=== PATIENT | female | born 1975 | race Caucasian/White ===

== ENCOUNTER 2016-04-12 22:39 | Emergency (ER) | payer MEDICAID ==
[~2016-04-12] VITALS: Ht 162.6 cm; Wt 90.3 kg
[2016-04-12 22:53] VITALS: BP 142/94
--- NOTE | 2016-04-13 01:12 | NUR ---
PT TAKEN TO BED 1
--- NOTE | 2016-04-13 01:13 | NUR ---
PATIENT PRESENTS TO ED WITH VAGINAL ABCESS . PT STATES THE PAIN HAS BEEN CONSTANT AND FEELS LIKE TONS OF TINY NEEDLES X1WEEK . DENIES N/V/D; SKIN IS PINK/WARM/DRY; AAOX4 WITH EVEN AND STEADY GAIT; LUNGS CLEAR BL; HR EVEN AND REGULAR; PT DENIES ANY FEVER, CP, SOB, OR COUGH AT THIS TIME; PATIENT STATES PAIN OF 10/10 AT THIS TIME; VSS; PATIENT POSITIONED FOR COMFORT; HOB ELEVATED; BEDRAILS UP X2; BED DOWN. ER MD MADE AWARE OF PT STATUS. DAUGHTER AT BEDSIDE
--- NOTE | 2016-04-13 01:14 | NUR ---
Dr. Aguayo evaluating patient at bedside.
[2016-04-13] MEDS ORDERED: ONDANSETRON 4 MG/2 ML VIAL IM ONE (01:25)
[2016-04-13] MEDS ORDERED: HYDROmorphone 1 MG/ML AMP ONE (01:30)
[2016-04-13] MEDS ORDERED: HYDROmorphone 1 MG/ML AMP IM ONE (01:45)
[2016-04-13 01:57] VITALS: BP 135/81
--- NOTE | 2016-04-13 01:58 | NUR ---
Patient discharged with v/s stable. Written and verbal after care instructions given and explained. Patient alert, oriented and verbalized understanding of instructions. Ambulatory with steady gait. All questions addressed prior to discharge. ID band removed. Patient advised to follow up with PMD. Rx of BACTRIM AND TYLENOL WITH CODEINE given. Patient educated on indication of medication including possible reaction and side effects. Opportunity to ask questions provided and answered. DAUGHTER AT SIDE AT THIS TIME
== END 2016-04-13 01:58 | disposition home or self-care (01) ==
LOC: MED 22:39
DX: N75.0 Cyst of Bartholin's gland (principal)
CPT/HCPCS: 96372; 99284; J1170; J2405

== ENCOUNTER 2017-07-23 08:29 | Emergency (ER) | payer SELFPAY ==
[~2017-07-23] VITALS: Ht 160 cm; Wt 93.0 kg
--- NOTE | 2017-07-23 08:34 | NUR ---
PT AMBULATED TO BED 2.
[2017-07-23 08:38] VITALS: BP 134/70
--- NOTE | 2017-07-23 08:49 | NUR ---
PT. CAME INTO THE ED DUE TO VAGINAL PAIN X 2 DAYS. PT. STATES " I CAME HERE 4 DAYS AGO AND HAD A CYST DRAINED THAT WAS IN MY VAGINA, BUT TWO DAYS AGO THE PAIN IS JUST BAD AND IM WORRIED ITS BACK". PT. IS AAOX4, DENIES FEVERS, CP, N/V/D, DENIES SOB. PT. HAS 9/10 SHARP PAIN IN L SIDE OF VAGINA THAT IS NON RADIATING. DAUGHTER AT BEDSIDE. ER MD NOTIFIED. WILL CONTINUE TO MONITOR.
[2017-07-23] MEDS ORDERED: LORazepam 2 MG/ML VIAL IM ONE (08:55)
[2017-07-23] MEDS ORDERED: KETOROLAC 60 MG/2 ML VIAL IM ONE (08:55)
[2017-07-23 09:30] VITALS: BP 128/68
--- NOTE | 2017-07-23 09:30 | NUR ---
Patient discharged with v/s stable. Written and verbal after care instructions given and explained. Patient verbalized understanding. Ambulatory with steady gait. All questions addressed prior to discharge. Advised to follow up with PMD.
== END 2017-07-23 09:30 | disposition home or self-care (01) ==
LOC: MED 08:29
DX: Z48.01 Encounter for change or removal of surgical wound dressing (principal); R10.2 Pelvic and perineal pain
CPT/HCPCS: 96372; 99284; J1885; J2060

== ENCOUNTER 2018-08-19 22:14 | Emergency (ER) | payer SELFPAY ==
[~2018-08-19] VITALS: Ht 160 cm; Wt 81.6 kg
--- NOTE | 2018-08-19 22:14 | NUR ---
Mary lucas in [facility] - 08/19/18 at 2235 by ELIU TO BED #08 AMBULATORY
[2018-08-19 22:31] VITALS: BP 126/90
--- NOTE | 2018-08-19 22:31 | NUR ---
TO BED # 08 AMBULATORY
--- NOTE | 2018-08-19 22:37 | NUR ---
43/F PRESENTS TO ED WITH DAUGHTERS, C/O N/V/D AND DIFFUSE ABD PAIN, SINCE LAST NIGHT. DENIES FEVER/CHILLS, CP, SOB OR DYSURIA. PT AWAKE AND ALERT, SKIN NORMAL WARM AND DRY, RR EVEN AND UNLABORED. BS HYPOACTIVE X4, ABD SOFT LARGE ROUND TENDER DIFFUSELY. HX ; DENIES RX OR OTC.
--- NOTE | 2018-08-19 22:49 | NUR ---
Dr. Correa examining patient.
[2018-08-19] MEDS ORDERED: NACL 0.9% 1,000 ML IV ONE (23:00)
[2018-08-19] MEDS ORDERED: ONDANSETRON 4 MG/2 ML VIAL IVP ONE (23:00)
[2018-08-19] MEDS ORDERED: KETOROLAC 30 MG/ML VIAL IVP ONE (23:00)
[2018-08-19 23:14] LABS: BASOPHILS # (AUTO) 0.1 K/uL (0.00-0.22); BASOPHILS % (AUTO) 0.9 % (0.0-2.0); EOSINOPHILS # (AUTO) 0.2 K/uL (0-0.4); EOSINOPHILS % (AUTO) 1.9 % (0.0-4.0); HEMATOCRIT 38.8 % (36-48); HEMOGLOBIN 12.9 g/dL (12.0-16.0); LYMPHOCYTES # (AUTO) 1.4 K/uL (2.5-16.5); LYMPHOCYTES % (AUTO) 16.9 % (20.5-51.1); MEAN CORPUSCULAR HEMOGLOBIN 28 pg (27-31); MEAN CORPUSCULAR HGB CONC 33 g/dL (33-37); MEAN CORPUSCULAR VOLUME 83.6 fL (80-94); MONOCYTES # (AUTO) 0.5 K/uL (0.8-1.0); MONOCYTES % (AUTO) 5.6 % (1.7-9.3); NEUTROPHILS # (AUTO) 6.1 K/uL (1.8-7.7); NEUTROPHILS % (AUTO) 74.7 % (42.2-75.2); PLATELET COUNT (AUTO) 329 K/uL (140-450); RED BLOOD CELL COUNT(AUTO) 4.64 MIL/uL (4.20-5.40); RED CELL DISTRIBUTION WIDTH 13.4 % (11.6-13.7); WHITE BLOOD COUNT (AUTO) 8.2 K/uL (4.8-10.8)
[2018-08-19 23:21] LABS: ANION GAP 12.9 (8-16); CARBON DIOXIDE 28.8 mmol/L (21-32); CREATININE 0.8 mg/dL (0.6-1.3); POTASSIUM 3.7 mmol/L (3.5-5.1)
[2018-08-19 23:27] LABS: ALBUMIN 3.4 g/dL (3.4-5.0); TOTAL BILIRUBIN 0.2 mg/dL (0.0-1.0)
[2018-08-19 23:35] VITALS: BP 128/88
--- NOTE | 2018-08-19 23:35 | NUR ---
Patient discharged with v/s stable. Written and verbal after care instructions given and explained. Patient alert, oriented and verbalized understanding of instructions. Ambulatory with steady gait. All questions addressed prior to discharge. ID band removed. Patient advised to follow up with PMD. Rx of MOTRIN AND ZOFRAN given. Patient educated on indication of medication including possible reaction and side effects. Opportunity to ask questions provided and answered.
== END 2018-08-19 23:35 | disposition home or self-care (01) ==
LOC: MED 22:14
DX: A08.4 Viral intestinal infection, unspecified (principal)
CPT/HCPCS: 36415; 80053; 81002; 81025; 85025; 96374; 96375; 99283; J1885; J2405; J7030

== ENCOUNTER 2023-07-28 16:00 | Emergency (ER) | payer SELFPAY ==
[~2023-07-28] VITALS: Ht 162.6 cm; Wt 95.3 kg
[2023-07-28 16:55] VITALS: BP 171/81; PULSE 91; RESP 16; TEMP 98; O2SAT 97
[2023-07-28 17:58] LABS: BASOPHILS % (AUTO) 0.5 % (0.0-2.0); EOSINOPHILS # (AUTO) 0.2 K/uL (0-0.4); EOSINOPHILS % (AUTO) 2.7 % (0.0-4.0); HEMATOCRIT 42.3 % (36-48); HEMOGLOBIN 14.5 g/dL (12.0-16.0); LYMPHOCYTES # (AUTO) 3.2 K/uL (2.5-16.5); LYMPHOCYTES % (AUTO) 39.6 % (20.5-51.1); MEAN CORPUSCULAR HEMOGLOBIN 29 pg (27-31); MEAN CORPUSCULAR HGB CONC 34 g/dL (33-37); MEAN CORPUSCULAR VOLUME 83.8 fL (80-94); MONOCYTES # (AUTO) 0.9 K/uL (0.8-1.0); MONOCYTES % (AUTO) 10.6 % (1.7-9.3); NEUTROPHILS # (AUTO) 3.7 K/uL (1.8-7.7); NEUTROPHILS % (AUTO) 46.6 % (42.2-75.2); PLATELET COUNT (AUTO) 340 K/uL (140-450); RED BLOOD CELL COUNT(AUTO) 5.05 MIL/uL (4.20-5.40); RED CELL DISTRIBUTION WIDTH 13.4 % (11.6-13.7)
[2023-07-28 18:17] LABS: ANION GAP 13.7 (8-16); CALCIUM 9.5 mg/dL (8.5-10.1); CREATININE 0.6 mg/dL (0.6-1.3); POTASSIUM 3.7 mmol/L (3.5-5.1)
[2023-07-28 18:28] LABS: ALANINE AMINOTRANSFERASE 78 U/L (12-78); ALBUMIN 3.9 g/dL (3.4-5.0); ALKALINE PHOSPHATASE 96 U/L (50-136); ASPARTATE AMINOTRANSFERASE 40 U/L (15-37); BILIRUBIN,DIRECT 0.1 mg/dL (0.0-0.3); TOTAL BILIRUBIN 0.3 mg/dL (0.0-1.0); TOTAL PROTEIN, SERUM 9.1 g/dL (6.4-8.2)
[2023-07-28] MEDS ORDERED: ALBU0.0912 IH (20:24)
[2023-07-28] MEDS ORDERED: PROM118S5 PO (20:24)
[2023-07-28 20:42] VITALS: BP 171/81; PULSE 91; RESP 16; TEMP 98; O2SAT 97
== END 2023-07-28 20:41 | disposition home or self-care (01) ==
LOC: MED 16:00
DX: R05.9 Cough, unspecified (principal); R06.02 Shortness of breath; Z79.899 Other long term (current) drug therapy
CPT/HCPCS: 36415; 71045; 80048; 80076; 81025; 84484; 85025; 85379; 93005; 99285